=== PATIENT | male | born 1950 | race Caucasian/White ===

== ENCOUNTER 2018-08-15 06:59 | Outpatient (CLI) | payer OTHER ==
[~2018-08-15] VITALS: Ht 177.8 cm; Wt 122.0 kg
[2018-08-15] VITALS (11 sets, daily range): BP systolic 103–185; BP diastolic 61–111
[~2018-08-15 06:59] MED LIST: METF10007 PO
[2018-08-15] MEDS ORDERED: ASPI81TA50 PO (07:26)
[2018-08-15] MEDS ORDERED: TRAM50TA PO (07:26)
[2018-08-15] MEDS ORDERED: PROAIR HFA8.5 GM INH (07:26)
[2018-08-15] MEDS ORDERED: GLIP10TA13 PO (07:26)
[2018-08-15] MEDS ORDERED: LISI-334 PO (07:26)
[2018-08-15] MEDS ORDERED: OMEG-165 PO (07:26)
[2018-08-15] MEDS ORDERED: PREG50CA PO (07:26)
[2018-08-15] MEDS ORDERED: [UNRECOGNIZED DRUG - CODE] PO (07:26)
[2018-08-15] MEDS ORDERED: ATOR20TA PO (07:26)
[2018-08-15] MEDS ORDERED: BUDE10.22 IH (07:26)
[2018-08-15] MEDS ORDERED: B12/1TAB3 PO (07:26)
[2018-08-15] MEDS ORDERED: FLUT16SP NS (07:26)
[2018-08-15 07:36] LABS: BASO # 0.1 x10^3/uL (0.0-0.2); BASO % 1 % (0-3); EOS # 0.2 x10^3/uL (0.0-0.7); EOS % 3 % (0-3); HEMATOCRIT 45.1 % (39.0-53.0); HEMOGLOBIN 15.3 g/dL (13.0-17.5); LYMPH # 2.6 x10^3/uL (1.0-4.8); LYMPH % 28 % (24-48); MEAN CORPUSCULAR HEMOGLOBIN 30 pg (25-35); MEAN CORPUSCULAR HGB CONC 34 g/dL (31-37); MEAN CORPUSCULAR VOLUME 90 fL (79-100); MONO # 1.2 x10^3/uL (0.0-1.1); MONO % 12 % (0-9); NEUT # 5.2 x10^3uL (1.8-7.7); NEUT % 55 % (31-73); PLATELET COUNT 371 x10^3/uL (140-400); RED BLOOD COUNT 5.04 x10^6/uL (4.30-5.70); WHITE BLOOD COUNT 9.3 x10^3/uL (4.0-11.0)
[2018-08-15 07:44] LABS: PROTHROMBIN TIME PATIENT 12.9 SEC (11.7-14.0)
[2018-08-15] MEDS ORDERED: LIDOCAINE WITH 8.4% SOD BICARB 3 ML DISP.SYRIN. ONE (08:04)
[2018-08-15] MEDS ORDERED: MIDAZOLAM HCL/PF 2 MG/2 ML VIAL. ONE (08:10)
[2018-08-15] MEDS ORDERED: fentaNYL PF VIAL 100 MCG/2 ML VIAL ONE (08:11)
[2018-08-15] MEDS: fentaNYL PF VIAL 100 MCG/2 ML VIAL IV ONE (09:16)
[2018-08-15] MEDS: MIDAZOLAM HCL/PF 2 MG/2 ML VIAL. IV ONE (09:17)
[2018-08-15] MEDS: LIDOCAINE WITH 8.4% SOD BICARB 3 ML DISP.SYRIN. IJ ONE (09:17)
--- NOTE | 2018-08-15 10:16 | PDOC ---
MODERATE SEDATION ASSESSMENT RISKS/ALTERNATIVES Risks/Alternatives Risks and alternatives of this type of sedation and procedure discussed with: RISK/ALTERNATIVES: Patient H & P ON CHART H & P H & P on chart and reviewed for co-morbid conditions and appropriate labs. H&P ON CHART: Yes STATUS PREG STATUS ASSESSED: Yes MEDS/ALLERGIES REVIEWED Meds/Allergies Reviewed Medications and Allergies including time and route of recently administered narcotics and sedatives. MEDS/ALLERGIES REVIEWED: Yes ASA RATING ASA RATING: II AIRWAY ASSESSMENT Airway Assessment Airway patency, oral function limitations, presence of caps, crowns, dentures, partials, and ability to extend neck assessed. AIRWAY ASSESSMENT: Yes MALLAMPATI SCORE MALLAMPATI SCORE: II PRE-SEDATION ASSESSMENT PRE-SEDATION ASSESSMENT: Yes LIBRADO MALDONADO MD Aug 15, 2018 10:16
--- NOTE | 2018-08-15 10:16 | PDOC ---
BRIEF OPERATIVE NOTE Pre-Op Diagnosis lymphoma Post-Op Diagnosis same Procedure Performed CT Bone Marrow Biopsy Surgeon Cassia Anesthesia Type: Conscious Sedation Specimens Obtained 2 x 3cc aspirates and 1 x 10g core Findings CT Bone Marrow Biopsy Complications No immediate LIBRADO MALDONADO MD Aug 15, 2018 10:16
--- NOTE | 2018-08-15 10:19 | PDOC1 ---
History and Physical Date of Procedure Date of Admission History of Present Illness Reason for Visit Lymphoma Past Medical History Past Medical History see nursing pre-op assessment Current Medications Current Medications Current Medications Lidocaine/Sodium Bicarbonate (Buffered Lidocaine 1%) 3 ml STK-MED ONCE .ROUTE ; Start 08/15/18 at 08:04; Stop 08/15/18 at 08:05; Status DC Midazolam HCl (Versed) 2 mg STK-MED ONCE .ROUTE ; Start 08/15/18 at 08:10; Stop 08/15/18 at 08:11; Status DC Fentanyl Citrate (Fentanyl 2ml Vial) 100 mcg STK-MED ONCE .ROUTE ; Start at 08:11; Stop 08/15/18 at 08:12; Status DC Lidocaine/Sodium Bicarbonate (Buffered Lidocaine 1%) 3 ml 1X ONCE IJ Last administered on 08/15/18at 09:17; Start 08/15/18 at 09:15; Stop 08/15/18 at 09 :17; Status DC Midazolam HCl (Versed) 2 mg 1X ONCE IV Last administered on 08/15/18at 09:17; Start 08/15/18 at 09:15; Stop 08/15/18 at 09:17; Status DC Fentanyl Citrate (Fentanyl 2ml Vial) 100 mcg 1X ONCE IV Last administered on 08/15/18at 09:16; Start 08/15/18 at 09:15; Stop 08/15/18 at 09:17; Status DC Active Scripts Active Reported Tramadol Hcl 50 Mg Tablet 50 Mg PO Q6HRS PRN Symbicort 80-4.5 Mcg Inhaler (Budesonide/Formoterol Fumarate) 10.2 Gm Hfa.aer.ad 1 Puff IH BID One Daily Energy (Multivitamin With Minerals) 1 Each Tablet 1 Each PO Lyrica (Pregabalin) 50 Mg Capsule 1 Cap PO TID Lisinopril 20 Mg Tablet 1 Tab PO DAILY Lipitor (Atorvastatin Calcium) 20 Mg Tablet 20 Mg PO HS Glipizide 10 Mg Tablet 1 Tab PO BID Fluticasone Propionate Nasal Mikado (Fluticasone Propionate) 16 Gm Mikado.susp 2 Mikado NS DAILY Fish Oil 1,000 mg Softgel ([place]-3S/Dha/Epa/Fish Oil) 1 Each Capsule 1 Each PO Folbic Rf Tablet (B12/Levomefolate Calcium/B-6) 1 Each Tablet 1 Each PO Aspir-Low (Aspirin) 81 Mg Tablet.dr 1 Tab PO DAILY Proair Hfa Inhaler (Albuterol Sulfate) 8.5 Gm Hfa.aer.ad 1 Puff INH PRN Q6HRS PRN Metformin Hcl 1,000 Mg Tablet 1,000 Mg PO BID Allergies Allergies: Coded Allergies: carisoprodol (Verified Allergy, Intermediate, 01/03/15) codeine (Verified Allergy, Intermediate, 01/03/15) sulfamethoxazole (Verified Allergy, Intermediate, 01/03/15) trimethoprim (Verified Allergy, Intermediate, 01/03/15) Physical Exam Vital Signs Vital Signs Date Time Temp Pulse Resp B/P (MAP) Pulse Ox O2 Delivery O2 Flow Rate FiO2 08/15/18 10:00 82 20 106/77 (87) 95 Room Air 08/15/18 09:18 2.0 08/15/18 07:53 98.4 98.4 Assessment Assessment Lymphoma Plan Plan CT Bone Marrow biopsy LIBRADO MALDONADO MD Aug 15, 2018 10:18
--- NOTE | 2018-08-15 11:10 | RAD ---
Procedure: CT-guided bone marrow aspiration and biopsy Clinical Indication: History of lymphoma Sedation: Conscious sedation was administered with a total intraprocedural [id number]-[id number] time of 13 minutes. The patient was monitored by a qualified independent observer throughout the time of sedation. Please refer to the medical record for exact doses of medications utilized to achieve moderate sedation. Antibiotics: None Fluoro Time: Not applicable Contrast: None Sterility: The procedure was performed in its entirety using appropriate elements of sterile technique. Consent: The procedure was explained in its entirety to the patient or the patients designated customer development representative by a member of the treatment team, including a discussion of the risks, benefits and commonly accepted alternatives to the procedure, as well as the expected consequences of no therapy whatsoever. Discussion of the risks included, but was not limited to, those that are most frequent and those that are rare but possibly severe or life-threatening, as well as the possibility of unforeseen complications. Technique and Findings: Following informed consent, the patient was prepped and draped in usual sterile fashion. Preliminary CT scan of the area of interest was performed. 1% Lidocaine was used to achieve local anesthesia. Under periodic CT surveillance, an 11-gauge needle was advanced through the cortex of the posterior superior iliac spine and 2 separate 2 mL marrow aspirates were obtained and preserved on site by the assistant import manager. A single 11-gauge core biopsy specimen was then obtained and preserved in formalin. The needle was then removed and hemostasis was achieved with manual compression. Complications: No immediate Impression: 1. CT-guided bone marrow aspiration and biopsy as described PQRS Compliance Statement: One or more of the following individualized dose reduction techniques were utilized for this examination: 1. Automated exposure control 2. Adjustment of the mA and/or kV according to patient size 3. Use of iterative reconstruction technique
--- NOTE | 2018-08-21 10:08 | PATHOLOGY ---
[facility] Accession Number: [id number] . 01 Material submitted: . PART A: BONE MARROW BIOPSY PART B: BONE MARROW CLOT PART C: BONE MARROW ASPIRATE SLIDES PART D: PERIPHERAL SMEARS PART E: BONE MARROW FLOW . 01 Clinical history: . Low-grade follicular lymphoma . 02 Diagnosis: Peripheral smear: - Normal WBC count with mild absolute monocytosis. . Bone marrow, aspirate smears, clot section, core biopsy: - Variable normocellular to focally mildly hypercellular marrow showing trilineage hematopoiesis, no significant dyspoiesis, and negative for involvement by follicular lymphoma. - Absent iron stores. . (JPM:chip; 08/20/2018) QMS/08/20/2018 . 02 Comment: The peripheral smear shows a normal WBC count with mild absolute monocytosis. The bone marrow is normocellular to focally mildly hypercellular and shows trilineage hematopoiesis and no significant dyspoiesis. Bone marrow submitted for flow cytometry shows no diagnostic immunophenotypic abnormalities. The bone marrow shows no morphologic evidence of involvement by follicular lymphoma. (JPM:chip; 08/20/2018) . . . Special stains performed: Iron stain on the aspirate smear (C1 and B1, and reticulin stain on A1. . Immunoperoxidase stains for CD20 and CD3 on A1 and immunoperoxidase stains for CD20 and CD3 on B1. . 02 Electronically signed: . Lalo Nicholson MD, Pathologist NPI- [id number] . 01 Gross description: . A. Received in formalin labeled "Francois Mejia," and additionally labeled on the requisition as "BM BX," is a single needle core of sotomayor bone measuring 0.9 cm in length and 0.2 cm in diameter. The specimen is submitted entirely in cassette A1, following decalcification. . B. Received in formalin labeled "Francois Mejia," and additionally labeled on the requisition as "BM aspirate-clot," is an aggregate of dark sotomayor blood clot measuring 1.8 x 0.6 x 0.2 cm in aggregate dimensions. The specimen is submitted entirely in cassette B1. (TSD; 08/15/2018) TOB/TOB . 02 Microscopic: . Laboratory Data: The WBC count is 9.3 K/CMM, and the automated WBC differential reveals 55% neutrophils, 28% lymphs, 12% monos, 3% eos, and 1% baso. The RBC count is 5.04 M/CMM, hemoglobin 15.3 G/DL, hematocrit 45.1%, MCV 90 FL, MCH 30 PG, MCHC 34 G/DL, and the RDW is 15.0%. The platelet count is 371 K/CMM. . Peripheral Smear: The peripheral smear is reviewed. The WBC count is normal. The WBC differential reveals a predominance of segmented neutrophils, with smaller populations of lymphocytes and monocytes and a few eosinophils noted. Neutrophils do not show dysplastic changes. There is no significant neutrophilic left shift. There are no circulating blasts. There is no leukoerythroblastic reaction. The lymphocyte population consists of small lymphocytes and medium-sized granular and reactive appearing lymphocytes. There are no obvious circulating lymphoma cells. There is a mild absolute monocytosis. Red blood cells appear normochromic and normocytic and show no significant anisopoikilocytosis. Platelets appear normal in number and morphology. . Aspirate Smears: Two Batres's-stained and one iron-stained aspirate smears are examined. The smears contain multiple marrow particles. The M/E ratio is within normal range. Erythroid maturation appears normoblastic. There are no megaloblastic or overt dysplastic changes. Granulopoiesis qualitatively appears normal. There is no significant left shift or dysplastic changes. Megakaryocytes appear adequate in number and are of variable ploidy. There are scattered admixed plasma cells. Plasma cells are not increased. There are admixed small lymphocytes. Lymphocytes are not increased, and there is no atypical lymphoreticular infiltrate. There are no other cells foreign to the marrow. The aspirate iron stain contains only a single marrow particle and is insufficient for evaluation of iron stores. No ringed sideroblasts are identified. . Bone Marrow Biopsy and Clot Sections: Sections of the bone marrow biopsy reveal a segment of bone marrow showing focal aspiration artifact. Preserved areas of the biopsy range between 30% and 50% cellular. The clot section contains multiple marrow particles, the majority of which range between 20-30% and 50-60% cellular. There is a good admixture of erythroid and granulocytic precursors, which are present in varying stages of maturation. There is no significant neutrophilic left shift or apparent increase of blasts. Megakaryocytes appear adequate in number and are of variable ploidy. Plasma cells are not increased. There is a small discrete, nonparatrabecular lymphoid nodule within the biopsy comprised of small lymphocytes having rounded to slightly irregular nuclei. There are no paratrabecular or atypical lymphoid infiltrates. There are no granulomas or other cells foreign to the marrow. To confirm flow cytometric findings and characterize the target cells in a tissue architectural context, a limited panel of immunohistochemical stains is obtained and yields the following results: . CD20 (A1): Subpopulation of small lymphocytes within lymphoid nodule positive, and small population of small lymphocytes positive having a scattered interstitial distribution; no paratrabecular lymphoid infiltrate identified. . CD3 (A1): Subpopulation of small lymphocytes within lymphoid nodule positive, and small population of small lymphocytes positive having a scattered interstitial distribution. . CD20 (B1): Small population of small lymphocytes positive having a scattered interstitial distribution and two small clusters of small lymphocytes positive. . CD3 (B1): Small population of small lymphocytes positive having a scattered interstitial distribution and also present in a few small clusters. . The iron stain of the clot section shows absent iron stores. A reticulin stain obtained on the biopsy shows no significant increase of reticulin fibers. . Special Studies: Bone marrow submitted for flow cytometry has a viability of 93.6%. Granulocytes comprise 70.5% of total cells and show phenotypic evidence of maturation. Monocytes comprise 3.7% of total cells and show phenotypic evidence of maturation. CD45 dim, CD34 positive cells comprise 0.2% of total cells. Lymphocytes comprise 22.5% of total cells. T-cells comprise 45% of lymphoid cells and show a CD4/CD8 ratio of 1.3. NK-cells comprise 28% of lymphoid cells. Mature B-cells comprise 16% of lymphoid cells and are polyclonal with a kappa:lambda ratio of 1.4. . (JPM:chip; 08/20/2018) . 02 Pathologist provided ICD-10: D72.821, D75.9 . 02 CPT . 251833, 342361, 665535, 374655, 227057, [id number], 655894, [id number], [id number] Specimen Comment: A courtesy copy of this report has been sent to Specimen Comment: [phone], , . Specimen Comment: Report sent to ,DR BADILLO / DR BENJAMIN Specimen Comment: A duplicate report has been generated due to demographic updates. Performed at: 01 [facility] [address] [facility] [address], [place] [id number] MD Hero Lancaster MD Phone: [phone] Performed at: 02 [facility] [place] [address] [place], [place] [id number] MD Lalo Nicholson MD Phone: [phone]
== END 2018-08-15 11:45 | disposition home or self-care (01) ==
LOC: INTRAD 06:59
PROVIDERS: ATTEND Internal Medicine Hematology & Oncology
DX: C85.90 Non-Hodgkin lymphoma, unspecified, unspecified site (principal); Z88.6 Allergy status to analgesic agent; Z88.2 Allergy status to sulfonamides; Z88.8 Allergy status to other drugs, medicaments and biological substances; Z79.899 Other long term (current) drug therapy; Z79.82 Long term (current) use of aspirin
CPT/HCPCS: 36415; 38222; 77012; 82962; 85025; 85610; 88184; 88185; 88237; 99152; J2250; J3010; 88305; 88311; 88313; 88341; 88342

== ENCOUNTER → 2018-09-23 | Outpatient (CLI) | payer OTHER ==
[2018-08-15 11:00] VITALS: BP 103/61
[~2018-09-23] MED LIST changes: +ASPI81TA50 PO; +ATOR20TA PO; +B12/1TAB3 PO; +BUDE10.22 IH; +FLUT16SP NS; +GLIP10TA13 PO; +LISI-334 PO; +OMEG-165 PO; +PREG50CA PO; +PROAIR HFA8.5 GM INH; +TRAM50TA PO; +[UNRECOGNIZED DRUG - CODE] PO
--- NOTE | 2018-09-23 13:40 | CARD ---
MR#: [id number] Date of Study: 09/23/2018 Ordering Physician: NIRANJAN BADILLO, Referring Physician: NIRANJAN BADILLO, Kaila: Valentina Abel RDCS APPROVED REPORT EXAM: LIMITED Two-dimensional echocardiogram Other Information Quality : Good INDICATION LV Function:Systolic Pre-Chemotherapy 2D DIMENSIONS RVDd2.5 (2.9-3.5cm)Left Atrium(2D)3.3 (1.6-4.0cm) IVSd1.1 (0.7-1.1cm)Aortic Root(2D)3.1 (2.0-3.7cm) LVDd5.0 (3.9-5.9cm)PWd1.0 (0.7-1.1cm) LVDs3.2 (2.5-4.0cm)FS (%) 30.0 % SV76.7 mlLVEF(%)60.0 (>50%) LEFT VENTRICLE The left ventricle is normal size. There is normal left ventricular wall thickness. The left ventricu lar systolic function is normal and the ejection fraction is within normal range. The Ejection Fracti on is 55-60%. There is normal LV segmental wall motion. RIGHT VENTRICLE The right ventricle is normal size. The right ventricular systolic function is normal. ATRIA The left atrium size is normal. The right atrium size is normal. The interatrial septum is intact wit h no evidence for an atrial septal defect or patent foramen ovale as noted on 2-D or Doppler imaging. GREAT VESSELS The aortic root is normal in size. PERICARDIAL EFFUSION There is no evidence of significant pericardial effusion. Critical Notification Critical Value: No <Conclusion> The left ventricular systolic function is normal and the ejection fraction is within normal range. Th e Ejection Fraction is 55-60%. There is normal LV segmental wall motion. Global strain values are decreased at 9.7% (Average normal values around 15-20%) suggestive of possi ble initiation of cardiomyopathy physiology, would consider repeat echo after chemotherapy dosing dep ending on type of therapy being used. Signed by : Darwin Morin, Electronically Approved : 09/23/2018 13:39:02
== END | disposition home or self-care (01) ==
LOC: ECHO 12:06
PROVIDERS: ATTEND Internal Medicine Hematology & Oncology
DX: C82.10 Follicular lymphoma grade II, unspecified site (principal)
CPT/HCPCS: 93308

== ENCOUNTER 2018-09-24 06:56 | Outpatient (CLI) | payer OTHER ==
[~2018-09-24] VITALS: Ht 177.8 cm; Wt 122.5 kg
[2018-09-24 07:33] VITALS: BP 136/72
[2018-09-24 07:45] LABS: BASO # 0.1 x10^3/uL (0.0-0.2); BASO % 1 % (0-3); EOS # 0.1 x10^3/uL (0.0-0.7); EOS % 1 % (0-3); HEMOGLOBIN 14.1 g/dL (13.0-17.5); LYMPH # 3.2 x10^3/uL (1.0-4.8); LYMPH % 25 % (24-48); MEAN CORPUSCULAR HEMOGLOBIN 30 pg (25-35); MEAN CORPUSCULAR HGB CONC 34 g/dL (31-37); MEAN CORPUSCULAR VOLUME 90 fL (79-100); MONO # 1.1 x10^3/uL (0.0-1.1); MONO % 9 % (0-9); NEUT # 8.1 x10^3uL (1.8-7.7); NEUT % 64 % (31-73); PLATELET COUNT 407 x10^3/uL (140-400); RED BLOOD COUNT 4.67 x10^6/uL (4.30-5.70); RED CELL DISTRIBUTION WIDTH 15.5 % (11.5-14.5); WHITE BLOOD COUNT 12.6 x10^3/uL (4.0-11.0)
[2018-09-24] MEDS ORDERED: VANCOMYCIN 1GM IVPB FOR OMNI 250 ML IV ONE (08:15)
[2018-09-24 08:17] LABS: PROTHROMBIN TIME PATIENT 12.4 SEC (11.7-14.0)
[2018-09-24] MEDS ORDERED: LIDOCAINE 1%/EPI 1:100,000 20 ML VIAL. ONE (08:17)
[2018-09-24] MEDS ORDERED: VANCOMYCIN 1GM IVPB FOR OMNI 250 ML ONE (08:24)
[2018-09-24] MEDS ORDERED: MIDAZOLAM HCL/PF 2 MG/2 ML VIAL. ONE (08:24)
[2018-09-24] MEDS ORDERED: fentaNYL PF VIAL 100 MCG/2 ML VIAL ONE (08:24)
[2018-09-24] MEDS ORDERED: fentaNYL PF VIAL 100 MCG/2 ML VIAL IV ONE (08:45)
[2018-09-24] MEDS ORDERED: MIDAZOLAM HCL/PF 2 MG/2 ML VIAL. IV ONE (08:45)
[2018-09-24] MEDS ORDERED: LIDOCAINE 1%/EPI 1:100,000 20 ML VIAL. IJ ONE (08:45)
[2018-09-24 09:10] VITALS: BP 117/73
[2018-09-24 09:24] VITALS: BP 134/69
[2018-09-24 09:40] VITALS: BP 130/65
[2018-09-24 09:55] VITALS: BP 99/79
[2018-09-24 10:10] VITALS: BP 119/71
--- NOTE | 2018-09-24 10:16 | RAD ---
Procedure: Ultrasound and fluoroscopically guided placement of right internal jugular power port.. 09/24/2018 10:11 AM Clinical Indication: LYMPHOMA Sedation: Conscious sedation was administered for 30 minutes. The patient was monitored by a qualified independent observer throughout the time of sedation. Please refer to the medical record for exact doses of medications utilized to achieve moderate sedation. Fluoroscopy time : 0.3 MINUTES Dose area product: 3 Gycm2 Consent: The procedure was explained in its entirety to the patient or the patients designated appliance service representative by a member of the treatment team, including a discussion of the risks, benefits and commonly accepted alternatives to the procedure, as well as the expected consequences of no therapy whatsoever. Discussion of the risks included, but was not limited to, those that are most frequent and those that are rare but possibly severe or life-threatening, as well as the possibility of unforeseen complications. Technique and Findings: All elements of maximal sterile barrier technique including the use of a cap, mask, sterile gown, sterile gloves, large sterile sheet, appropriate hand hygiene, and 2% chlorhexidine for cutaneous antisepsis (or acceptable alternative antiseptic per current guidelines) were followed for this procedure. Following informed consent, and a timeout procedure, the patient was prepped and draped in the usual sterile fashion. Ultrasound interrogation of the right neck revealed patency and compressibility of the right internal jugular vein. A 21-gauge micropuncture was then used to gain access to this vein under ultrasound guidance. A hard copy ultrasound image was recorded. The needle was exchanged over a wire for a sheath. A 1 inch incision was made several centimeters inferior to the venotomy site. A catheter was tunneled from this site dermatotomy site in the neck. Catheter was advanced through peel-away sheath such that its tip was in the proximal right atrium with the patient supine. The catheter was trimmed to length and connected to the port reservoir. The port was found to flush and aspirate normally. The wound was closed in layers using 4-0 Vicryl suture. Sterile dressings were applied. Impression: Successful ultrasound and fluoroscopically guided placement of a right internal jugular PowerPort
== END 2018-09-24 10:30 | disposition home or self-care (01) ==
LOC: INTRAD 06:56
PROVIDERS: ATTEND Internal Medicine Hematology & Oncology
DX: C82.10 Follicular lymphoma grade II, unspecified site (principal); J40 Bronchitis, not specified as acute or chronic; Z88.1 Allergy status to other antibiotic agents; Z92.21 Personal history of antineoplastic chemotherapy; Z98.890 Other specified postprocedural states; Z87.891 Personal history of nicotine dependence; Z90.49 Acquired absence of other specified parts of digestive tract; Z88.2 Allergy status to sulfonamides; Z88.8 Allergy status to other drugs, medicaments and biological substances
CPT/HCPCS: 36415; 36561; 76937; 77001; 85025; 85610; A4215; C1751; C1892; C1894; J2250; J3010; J3370; J3490; 99152; 99153